=== PATIENT | female | born 1995 | race Caucasian/White ===

== ENCOUNTER 2020-05-14 07:20 | Outpatient (REF) | payer OTHER, SELFPAY ==
[2020-05-14 11:14] LABS: MANUAL DIFF FLAG NO
[2020-05-14 11:27] LABS: Basophils Percent Auto 0.5 % (0-2); Eosinophils Absolute Auto 0.2 X10*3/uL (0.0-0.4); Eosinophils Percent Auto 2.9 % (0-4); Hematocrit 40.8 % (37-47); Hemoglobin 13.2 g/dl (12.0-16.0); Imm Gran Abs Auto 0.02 X10*3/uL (0.00-0.03); Imm Gran Pct Auto 0.3 % (0.0-0.4); Lymphocytes Percent Auto 39.8 % (20-40); Mean Corpuscular HGB Conc 32.4 g/dl (31.0-35.0); Mean Corpuscular Hemoglobin 28.7 pg (27.0-33.0); Mean Corpuscular Volume 88.7 fL (80-98); Mean Platelet Volume 11.7 fL (9.4-12.3); Monocytes Absolute Auto 0.5 X10*3/uL (0.1-1.2); Neutrophils Absolute Auto 3.9 X10*3/uL (2.0-8.3); Neutrophils Percent Auto 50.5 % (45-73); Platelet Count 334 X10*3/uL (160-400); Red Cell Distribution Width 12.6 % (11.0-16.0); White Blood Count 7.6 X10*3/uL (4.8-10.8)
[2020-05-14 11:35] LABS: Glucose Urine UA NEG (NEG); Leukocyte Esterase Urine 1+ (NEG); Nitrite Urine NEG (NEG); Urine Blood NEG (NEG); Urine Ketones NEG (NEG); Urine Protein NEG (NEG-TRACE)
[2020-05-14 11:47] LABS: Alanine Aminotransferase 9 U/L (0-31); Alkaline Phosphatase 57 U/L (39-117); Anion Gap 14 (12-20); Aspartate Amino Transferase 13 U/L (5-31); Bilirubin Total 0.3 mg/dL (0.0-1.0); Blood Urea Nitrogen 10 mg/dL (9-16); Calcium 8.8 mg/dL (8.4-10.2); Carbon Dioxide 23 mmol/L (22-29); Chloride 105 mmol/L (96-108); Cholesterol 217 mg/dL; Estimated Glomerular Filt Rate > 60; Glucose Fasting 74 mg/dL (60-99); HDL Cholesterol 60 mg/dL; Iron 63 mcg/dL (30-160); LDL Cholesterol Calculated 120 mg/dl; Percent Iron Saturation 15 % (15-50); Potassium 4.4 mmol/l (3.3-5.1); Sodium 138 mmol/L (135-145); Total Iron Binding Capacity 425 mcg/dL (228-428); Total Protein 7.1 g/dL (6.5-8.0); Triglycerides 187 mg/dL; Unsaturated Iron Binding 362 ug/dL
[2020-05-14 11:51] LABS: Appearance Urine HAZY; Color Urine YELLOW
[2020-05-14 12:10] LABS: Ferritin 33 ng/mL (10-122); TSH reflex Free T4 1.21 mIU/mL (0.32-4.0)
[2020-05-14 12:31] LABS: Bacteria Urine 1+ /LPF; RBC Urine 0 /HPF (0); Squamous Epithelial Cell Urine 2+ /LPF
== END 2020-05-14 07:21 | disposition home or self-care (01) ==
LOC: HO.HMGCLDS 07:20
PROVIDERS: PCP Internal Medicine; Visit Provider Nurse Practitioner Family
DX: G25.81 Restless legs syndrome (principal); Z00.00 Encounter for general adult medical examination without abnormal findings
CPT/HCPCS: 36415; 80053; 80061; 81001; 82728; 83540; 84443; 85025

== ENCOUNTER → 2020-06-16 08:21 | Outpatient (REF) | payer OTHER, SELFPAY ==
--- NOTE | 2020-06-16 08:25 | CA_ITS ---
Transthoracic Echocardiogram Patient (Last, First, Middle): Ivanna Hogan, Gender: Female Date of : 1995 Age: 25 Procedure Date: 06/16/2020 Procedure Type: Transthoracic Echocardiogram Location: OP Height: 160.02 cm Weight: 72.58 kg BSA: 1.76 m2 Heart Rate: bpm BP: 118 / 60 mmHg Video Manager: Referring MD: Sammy Nicolas [facility] Symptoms: R01.1 - Cardiac murmur, unspecified Study Quality: Good ECG Rhythm: Sinus Conclusions: - The left ventricular systolic function is normal. The visually estimated ejection fraction is between 60-65%. - No obvious valvular pathology seen on this study. Findings Left Ventricle Normal left ventricular cavity size. There is normal left ventricular wall thickness. The left ventricular systolic function is normal. The visually estimated ejection fraction is between 60-65%. There is no evidence of regional wall motion abnormalities. Diastolic function is normal for age. Right Ventricle Normal right ventricular cavity size and systolic function. Atria The left atrium is normal in size. The right atrium is normal in size. Aortic Valve There is a normal trileaflet aortic valve. There is no aortic valve stenosis. There is no aortic valve regurgitation. Mitral Valve The mitral valve appears normal. There is trace mitral valve regurgitation. There is no mitral valve stenosis. Pulmonic Valve The pulmonic valve was not well visualized. Tricuspid Valve Normal tricuspid valve structure. There is trace tricuspid valve regurgitation. The pulmonary artery systolic pressure is normal. Great Vessels The aortic annulus, sinuses of valsalva, and asc aorta are normal in size. Venous The inferior vena cava is normal in size and collapses greater than 50% with inspiration. Pericardium/Pleural There is no evidence of pericardial effusion. Prior Study Comparison No prior study available for comparison. Recommendations, Care & Conclusions No obvious valvular pathology seen on this study. Measurements 2D Linear Measurements IVSd: 0.90 0.6-0.9/0.6-1.0 cm LVIDd: 3.74 3.9-5.3/4.2-5.9 cm LVIDd Index: 2.13 2.4-3.2/2.2-3.1 cm/m2 LVIDs: 2.17 2.0-3.6 cm LVPWd: 0.97 0.7-1.1 cm Ao Root: 2.80 2.1-3.5 cm LA Diam: 2.80 2.7-3.8/3.0-4.0 cm LAIDs Index: 1.59 1.5-2.3 cm/m2 LV Mass: 129.71 67-162/88-224 g LV Mass Index: 73.70 43-95/49-115 g/m2 LVOT Diam: 2.40 3.0+(-)1.3 cm Mitral Valve MV Pk E: 0.80 MV PK A: 0.78 MV Decel Time: 127.00 E/A: 1.00 E'Lateral: 18.30 E'Medial: 13.80 E/E' Med: 5.80 E/E' Lat: 4.40 PHT: 37.00 MVA PHT: 5.95 Decel Mccracken: 6.31 Aortic Valve AoV Pk Davin: 1.46 AoV Mn Davin: 0.92 AoV VTI: 0.28 AoV Pk Grad: 9.00 Aov Mn Grad: 4.00 HIRAL Cont.VTI: 3.19 LVOT LVOT Pk Davin: 1.04 LVOT Mn Davin: 0.66 LVOT VTI: 0.19 LVOT Pk Grad: 4.00 LVOT Mn Grad: 2.00 LVOT Diam: 2.40 LVOT Area: 4.52 Diastolic Function MV Pk E: 0.80 MV Pk A: 0.78 E/A: 1.00 E'Medial: 13.80 E/E' Med: 5.80 E' Laterial: 18.30 E/E' Lat: 4.40 Tricuspid Valve TR Pk Davin: 2.11 TR Pk Grad: 18.00 RA Press: 3.00 RVSP: 21.00 Great Vessels Aorta Ao Root-2D: 2.80 2.0-3.7 cm Ao Asc: 2.40 2.1-3.4 cm Pulmonary Valve PV Pk Davin: 1.13 Peak PV Grad: 5.00 Updated in Other Vendor System with Status of Final Eliseo Keen MD electronically signed on 06/16/2020 11:39:43 AM with status of Final
--- NOTE | 2020-06-16 09:25 | US_ITS ---
EXAMINATION: US THYROID CLINICAL INFORMATION: Nontoxic goiter, unspecified. COMPARISON: None. TECHNIQUE: Linear transducer law-scale and color Doppler examination with attention to the region of the thyroid. FINDINGS: SIZE: Measurements of the thyroid lobes and nodules are given in sagittal, anteroposterior and transverse dimensions respectively. Right Thyroid Lobe: 4.2 x 1.4 x 1.3 cm, volume 4.0 mL. Parenchyma: The gland echotexture is homogeneous. Thyroid vascularity is normal. Left Thyroid Lobe: 4.2 x 0.9 x 1.2 cm, volume 2.4 mL. Parenchyma: The gland echotexture is homogeneous. Thyroid vascularity is normal. Isthmus: 0.3 cm in maximum AP dimension. RIGHT THYROID LOBE: There are 3 nodules seen. 1. Location: Superior. Size: 0.3 x 0.3 x 0.3 cm. Nodule characteristics: Hypoechoic, smoothly marginated with no intranodular flow, likely simple cyst. 2. Location: Middle. Size: 0.5 x 0.4 x 0.3 cm. Nodule characteristics: Hypoechoic, smoothly marginated with echogenic microcalcifications and no intranodular flow, likely a colloid cyst. 3. Location: Middle. Size: 0.4 x 0.3 x 0.4 cm. Nodule characteristics: Hypoechoic, smoothly marginated with echogenic microcalcifications and no intranodular flow, likely colloid cyst.. ISTHMUS: No nodules. LEFT THYROID LOBE: There are 3 nodules seen.1. Location: Middle. Size: 0.6 x 0.4 x 0.5 cm. Nodule characteristics: Hypoechoic, smoothly marginated with intrinsic calcification and no intranodular flow, likely a colloid cyst. 2. Location: Middle. Size: 0.3 x 0.4 x 0.4 cm. Nodule characteristics: Hypoechoic, smoothly marginated with no intranodular flow, likely a colloid cyst. 3. Location: Inferior. Size: 0.4 x 0.2 x 0.3 cm. Nodule characteristics: Hypoechoic, smoothly marginated with no intranodular flow, likely a colloid cyst. NODES: No lymphadenopathy is seen in the tissue surrounding the thyroid gland. US/US thyroid IMPRESSION: Bilateral nonsuspicious subcentimeter thyroid nodules.
== END ==
LOC: HO.CARD 08:21
PROVIDERS: Visit Provider Nurse Practitioner Family
DX: R01.1 Cardiac murmur, unspecified (principal); E04.9 Nontoxic goiter, unspecified
CPT/HCPCS: 76536; 93306

== ENCOUNTER 2021-06-22 08:29 | Outpatient (REF) | payer OTHER, SELFPAY ==
--- NOTE | ~2021-06-22 | US_ITS ---
EXAMINATION: US THYROID CLINICAL INFORMATION: Nontoxic multinodular goiter. COMPARISON: Ultrasound thyroid 06/16/2020. TECHNIQUE: Linear transducer grayscale and color Doppler examination with attention to the region of the thyroid. FINDINGS: SIZE: Measurements of the thyroid lobes and nodules are given in sagittal, anteroposterior and transverse dimensions respectively. Right Thyroid Lobe: 4.9 x 1.2 x 1.5 cm, volume 4.6 mL. Previously 4.2 x 1.4 x 1.3 cm, volume 4.0 mL. Parenchyma: The gland echotexture is homogeneous. Thyroid vascularity is slightly increased. Left Thyroid Lobe: 4.8 x 1.0 x 1.3 cm, volume 3.3 mL. Previously 4.2 x 0.9 x 1.2 cm, volume 2.4 mL. Parenchyma: The gland echotexture is homogeneous. Thyroid vascularity is slightly normal. Isthmus: 0.3 cm in maximum AP dimension. Previously 0.3 cm. There are multiple subcentimeter colloid cysts bilaterally. This is similar to previous exam. No other focal thyroid nodule is seen. NODES: No lymphadenopathy is seen in the tissue surrounding the thyroid gland. US/US thyroid IMPRESSION: Slightly hypervascular thyroid gland. Multiple bilateral colloid cysts. According to TI RADS criteria, no imaging follow-up is indicated. ACR TI-RADS RECOMMENDATION REFERENCE: Ultrasound-guided fine-needle aspiration, followup ultrasound, no further follow up. * TR1 (0 point) and TR 2 (2 points): No FNA or follow up * TR3 (3 points): FNA if more than or equal to 2.5 cm in maximum dimension, followup ultrasound in 1, 3 and 5 years if 1.5 to 2.4 cm in maximum dimension. * TR4 (4-6 points): FNA if more than or equal to 1.5 cm in maximum dimension, followup ultrasound in 1, 2, 3 and 5 years if 1 to 1.4 cm in maximum dimension. * TR5 (more than or equal to 7 points): FNA if more than or equal to 1 cm in maximum dimension, followup ultrasound every year for 5 years if 0.5 to 0.9 cm in maximum dimension. * TR3, TR4 or TR5 nodules that are below the size threshold for follow up receive no follow up.
== END 2021-06-22 08:30 | disposition home or self-care (01) ==
LOC: HO.US 08:29
PROVIDERS: Visit Provider Internal Medicine
DX: E04.2 Nontoxic multinodular goiter (principal)
CPT/HCPCS: 76536

== ENCOUNTER 2022-11-11 14:19 | Outpatient (REF) | payer OTHER, SELFPAY ==
[2022-11-11 17:01] LABS: Alanine Aminotransferase 10 U/L (0-31); Albumin Level 4.6 g/dL (3.5-5.0); Alkaline Phosphatase 87 U/L (39-117); Anion Gap 11 (12-20); Aspartate Amino Transferase 16 U/L (5-31); Bilirubin Total 0.6 mg/dL (0.0-1.0); Blood Urea Nitrogen 13 mg/dL (9-16); Calcium 9.8 mg/dL (8.4-10.2); Carbon Dioxide 27 mmol/L (22-29); Chloride 106 mmol/L (96-108); Estimated Glomerular Filt Rate > 60; Glucose Random 78 mg/dL (60-115); Iron 72 mcg/dL (30-160); Percent Iron Saturation 20 % (15-50); Potassium 4.3 mmol/L (3.3-5.1); Sodium 140 mmol/L (135-145); Total Iron Binding Capacity 356 mcg/dL (228-428); Unsaturated Iron Binding 284 ug/dL
[2022-11-11 17:16] LABS: Vitamin D 25-OH Total 23.3 ng/mL (>30)
== END 2022-11-11 14:20 | disposition home or self-care (01) ==
LOC: HO.HMGCLDS 14:19
PROVIDERS: PCP Internal Medicine; Visit Provider Internal Medicine
DX: Z00.00 Encounter for general adult medical examination without abnormal findings (principal); E04.9 Nontoxic goiter, unspecified
CPT/HCPCS: 36415; 80053; 82306; 83540

== ENCOUNTER → 2023-10-19 14:09 | Outpatient (BNVA) | payer OTHER, SELFPAY | PROVIDERS: PCP Internal Medicine; Visit Provider Physician Assistant | DX: S00.33XA Contusion of nose, initial encounter (principal); W50.0XXA Accidental hit or strike by another person, initial encounter | CPT/HCPCS: 70140; 99204 ==

== ENCOUNTER → 2023-10-26 15:52 | Outpatient (BNVA) | payer OTHER, SELFPAY | PROVIDERS: PCP Internal Medicine; Visit Provider Physician Assistant | DX: S02.2XXA Fracture of nasal bones, initial encounter for closed fracture (principal); W20.8XXA Other cause of strike by thrown, projected or falling object, initial encounter | CPT/HCPCS: 99213 ==

== ENCOUNTER 2023-11-12 08:49 | Outpatient (REF) | payer OTHER, SELFPAY ==
[2023-11-12 11:04] LABS: MANUAL DIFF FLAG NO
[2023-11-12 11:14] LABS: Basophils Absolute Auto 0.1 X10*3/uL (0.0-0.2); Basophils Percent Auto 0.8 % (0-2); Eosinophils Absolute Auto 0.3 X10*3/uL (0.0-0.4); Eosinophils Percent Auto 4.6 % (0-4); Hematocrit 40.7 % (37.0-47.0); Hemoglobin 13.4 g/dl (12.0-16.0); Imm Gran Abs Auto 0.01 X10*3/uL (0.00-0.03); Imm Gran Pct Auto 0.2 % (0.0-0.4); Lymphocytes Absolute Auto 2.6 X10*3/uL (1.2-4.9); Lymphocytes Percent Auto 40.1 % (20-40); Mean Corpuscular HGB Conc 32.9 g/dl (31.0-35.0); Mean Corpuscular Hemoglobin 28.9 pg (27.0-33.0); Mean Corpuscular Volume 87.9 fL (80.0-98.0); Mean Platelet Volume 11.4 fL (9.4-12.3); Monocytes Absolute Auto 0.5 X10*3/uL (0.1-1.2); Monocytes Percent Auto 7.6 % (2-11); Neutrophils Absolute Auto 3.1 x10*3/uL (2.0-8.3); Neutrophils Percent Auto 46.7 % (45-73); Platelet Count 318 X10*3/uL (160-400); Red Blood Count 4.63 X10*6/uL (4.20-5.50); Red Cell Distribution Width 13.2 % (11.0-16.0); White Blood Count 6.6 X10*3/uL (4.8-10.8)
[2023-11-12 12:09] LABS: Alanine Aminotransferase 10 U/L (0-31); Albumin Level 4.4 g/dL (3.5-5.0); Alkaline Phosphatase 70 U/L (39-117); Anion Gap 14 (12-20); Aspartate Amino Transferase 18 U/L (5-31); Bilirubin Total 0.6 mg/dL (0.0-1.0); Blood Urea Nitrogen 10 mg/dL (9-16); Calcium 9.4 mg/dL (8.4-10.2); Carbon Dioxide 20 mmol/L (22-29); Chloride 109 mmol/L (96-108); Cholesterol 196 mg/dL (<200); Estimated Glomerular Filt Rate > 60; Glucose Fasting 82 mg/dL (60-99); HDL Cholesterol 50 mg/dL (>40); LDL Cholesterol Calculated 126 mg/dL (<100); Potassium 3.8 mmol/L (3.3-5.1); Sodium 139 mmol/L (135-145); Total Protein 7.8 g/dL (6.5-8.0); Triglycerides 103 mg/dL (<150)
[2023-11-12 12:24] LABS: TSH reflex Free T4 0.63 uIU/mL (0.32-4.0)
== END 2023-11-12 08:50 | disposition home or self-care (01) ==
LOC: HO.HMGCLDS 08:49
PROVIDERS: PCP Internal Medicine; Visit Provider Internal Medicine
DX: Z00.00 Encounter for general adult medical examination without abnormal findings (principal); Z13.6 Encounter for screening for cardiovascular disorders; E04.9 Nontoxic goiter, unspecified
CPT/HCPCS: 36415; 80053; 80061; 84443; 85025

== ENCOUNTER 2023-11-16 07:33 | Outpatient (AMB) | payer OTHER, SELFPAY ==
--- NOTE | 2023-11-16 07:40 | MHC.PC.OV ---
Vital Signs 11/16/23 07:42 Height 5 ft 3 in Weight 175 lb BMI 31.0 BP 102/80 Blood Pressure Location Lt brachial Position Sitting Pulse 79 Pulse Source Pulse Oximeter Pulse Oximetry (%) 100 Oxygen Delivery Method Room Air Intake Visit Reasons: PE Intake Note: Pt is here today for her PE Allergies No Known Allergies Allergy (Verified 11/16/23 07:41) Medication List - Last Reconciled 11/16/23 by Tanisha Ornelas MD No Known Home Meds Tobacco use date assessed: 11/16/23 Dental Screening Dental Screen Date: 11/16/23 Did you have a dental visit in the last 12 months?: Yes Did you have a dental problem in the last 6 months where you did not have access to dental care?: Yes Was dental information given to patient?: Patient has dentist HPI PE HPI Details Pt is for PE. [facility] Medical History (Updated 11/16/23 @ 08:20 by Tanisha Ornelas MD) Normal Pap smear GERD (gastroesophageal reflux disease) Mild intermittent asthma Iron deficiency anemia Surgical History History of breast biopsy History of deviated nasal septum History of surgery on arm Family History Father Diabetes mellitus Sarcoidosis Mother Endometriosis Maternal Grandfather Diabetes mellitus CVD (cardiovascular disease) Maternal Grandmother CVD (cardiovascular disease) Paternal Grandmother No problems noted. Paternal Grandfather No problems noted. Sister No problems noted. Maternal Aunt Breast cancer Social History Housing: House Alcohol intake: current Alcohol intake frequency: a few times a month Patient Tobacco Use Status: Never used Tobacco e-Cigarette/Vaping Use: Never Used Current occupational status: employed Cognitive needs: No Hearing needs: No Vision needs: No Questionnaire Thrive Questionnaire Date Thrive assessed: 11/11/22 I am a: Patient What is your living situation today?: I have a steady place to live Within the past 12 months, did the food you bought not last and you didn't have the money to get more?: Never true Within the past 12 months, did you worry whether your food would run out before you got money to buy more?: Never true Please select the resources that you would like help with: None THRIVE Score: 0 AUDIT C Alcohol Use Questionnaire (AUDIT-C) 1. How often do you have a drink containing alcohol?: 2-4 times a month 2. How many drinks containing alcohol do you have on a typical day when you are drinking?: 1 or 2 3. How often do you have six or more drinks on one occasion?: Never Total Score: 2 KATIE-7 AMB Questionnaire KATIE-7 Date KATIE - 7 assessed: 11/11/22 Feeling nervous, anxious, or on edge: 1 = Several days Not being able to stop or control worryin = Several days Worrying too much about different things: 1 = Several days Trouble relaxin = Not at all Being so restless that it is hard to sit still: 0 = Not at all Becoming easily annoyed or irritable: 0 = Not at all Feeling afraid as if something awful might happen: 0 = Not at all Total KATIE-7 score (0-4 normal; 5-9 mild; 10-14 moderate; 15-21 severe): 3 Source: Developed by Drs. Adalberto Bush, Kell Smith, Bassam Argueta and colleagues, with an educational ra from [employer]. Review of Systems Const All systems reviewed & are unremarkable except as noted in HPI and below Reports no additional complaints Eyes Reports no additional complaints ENT Reports no additional complaints Card Reports no additional complaints Resp Reports no additional complaints GI Reports no additional complaints Reports no additional complaints Physical exam (Primary Care) Vital Signs: Last Vital Signs Pulse 79 11/16/23 07:42 BP 102/80 11/16/23 07:42 Pulse Ox 100 11/16/23 07:42 Oxygen Delivery Method Room Air 11/16/23 07:42 BMI result Body Mass Index 31.0 Tobacco/Smoking Status: Tobacco use Status Tobacco use date assessed 11/16/23 11/16/23 07:44 Patient Tobacco Use Status Never used Tobacco 11/16/23 07:44 e-Cigarette/Vaping Use Never Used 11/16/23 07:44 Thrive Assessment: Date of Thrive Assessment Date Thrive assessed 11/11/22 11/16/23 07:44 Const General: no acute distress HENMT Head: Yes normal to inspection Ears: hearing grossly normal bilaterally Face and sinus: Yes normal facial exam Throat: Yes posterior oropharynx normal Eyes General: appearance normal, both eyes and all related structures Neck Neck: Yes supple Resp Effort & Inspection: normal respiratory effort Auscultation: clear to auscultation bilaterally Cardio Rhythm: regular rhythm Heart sounds: S1 normal heart sound present and S2 normal heart sound present GI Inspection: Yes normal to inspection Palpation (GI): Soft to palpation Percussion: Yes normal to percussion Auscultation: normal bowel sounds Assessment and Plan Assessment & Plan (1) Dysplastic nevus: Comment: on upper chest Code(s): D23.9 - Other benign neoplasm of skin, unspecified Plan: refer to dermatology (2) Physical exam: Code(s): Z00.00 - Encounter for general adult medical examination without abnormal findings Plan: Well-balanced diet regular exercise discussed with the patient. She has up-to-date with the Pap smear by rental manager Orders: Orders Complete Blood Count Auto Diff 1 Year Z00.00 - Encounter for general adult medical examination without abnormal findings Comprehensive [place]. Panel Fast 1 Year Z00.00 - Encounter for general adult medical examination without abnormal findings Lipid Panel 1 Year Z00.00 - Encounter for general adult medical examination without abnormal findings Referrals Dermatology Referral D23.9 - Other benign neoplasm of skin, unspecified Coding Level of Care Code Est Pt Prev Care 18-39y(74942) Diagnoses Dysplastic nevus D23.9 Physical exam Z00.00
[2023-11-16 07:42] VITALS: BP 102/80; PULSE 79; O2SAT 100; BMI 31.0
== END 2023-11-16 08:17 | disposition home or self-care (01) ==
PROVIDERS: Visit Provider Internal Medicine
DX: D23.9 Other benign neoplasm of skin, unspecified (principal); Z00.00 Encounter for general adult medical examination without abnormal findings
CPT/HCPCS: 99395

== ENCOUNTER 2025-03-15 07:34 | Outpatient (REF) | payer BC, SELFPAY ==
[2025-03-18 18:23] LABS: Immunoglobulin A 350 mg/dL (47-310)
== END 2025-03-15 07:35 | disposition home or self-care (01) ==
LOC: HO.HMGCLDS 07:34
PROVIDERS: PCP Internal Medicine; Visit Provider Internal Medicine
DX: K90.0 Celiac disease (principal)
CPT/HCPCS: 36415; 82784; 86364

== ENCOUNTER 2025-04-04 08:42 | Outpatient (REF) | payer BC, SELFPAY | END 2025-04-04 08:43 | disposition home or self-care (01) | LOC: HO.HMGCLDS 08:42 | PROVIDERS: PCP Internal Medicine; Visit Provider Internal Medicine | DX: R76.89 Other specified abnormal immunological findings in serum (principal) | CPT/HCPCS: 36415; 82784; 86334 ==

== ENCOUNTER 2025-04-11 12:31 | Outpatient (AMB) | payer BC, SELFPAY ==
--- NOTE | 2025-04-11 12:35 | A.OFFPC_ITS ---
Vital Signs 04/11/25 12:38 Height 5 ft 3 in Weight 154 lb BMI 27.3 BP 108/76 Blood Pressure Location Lt brachial Position Sitting Pulse 74 Pulse Source Pulse Oximeter Temp 98.3 F Temp Source Oral Pulse Oximetry (%) 99 Oxygen Delivery Method Room Air Intake Visit Reasons: Annual PE Intake Note: Pt is here today for PE. Allergies No Known Allergies Allergy (Verified 04/11/25 12:39) Medication List - Last Reconciled 04/11/25 by Tanisha Ornelas MD docosahexaenoic acid ( DHA) PO sertraline 50 mg PO DAILY Tobacco use date assessed: 04/11/25 Dental Screening Dental Screen Date: 04/11/25 Did you have a dental visit in the last 12 months?: Yes Did you have a dental problem in the last 6 months where you did not have access to dental care?: No Was dental information given to patient?: Patient has dentist HPI Annual PE HPI Details Pt presents for PE. She had her 2nd child 6 months ago. Had 3-year- old daughter was diagnosed with celiac disease. [facility] Medical History (Updated 04/11/25 @ 13:08 by Tanisha Ornelas MD) Gestational diabetes Dysplastic nevus Normal Pap smear GERD (gastroesophageal reflux disease) Mild intermittent asthma Iron deficiency anemia Surgical History History of breast biopsy History of deviated nasal septum History of surgery on arm Family History Father Diabetes mellitus Sarcoidosis Mother Endometriosis Maternal Grandfather Diabetes mellitus CVD (cardiovascular disease) Maternal Grandmother CVD (cardiovascular disease) Paternal Grandmother No problems noted. Paternal Grandfather No problems noted. Sister No problems noted. Maternal Aunt Breast cancer Social History Housing: House Alcohol intake: current Alcohol intake frequency: a few times a month Patient Tobacco Use Status: Never used Tobacco e-Cigarette/Vaping Use: Never Used service: No Current occupational status: employed Cognitive needs: No Hearing needs: No Vision needs: No Questionnaire PHQ-9 Over the last 2 weeks, how often have you been bothered by any of the following problems? 1. Little interest or pleasure in doing things: not at all 2. Feeling down, depressed, or hopeless: not at all 3. Trouble falling or staying asleep, or sleeping too much: not at all 4. Feeling tired or having little energy: several days 5. Poor appetite or overeating: not at all 6. Feeling bad about yourself - or that you are a failure or have let yourself or your family down: not at all 7. Trouble concentrating on things, such as reading the newspaper or watching television: not at all 8. Moving or speaking so slowly that other people could have noticed. Or the opposite - being so fidgety or restless that you have been moving around a lot more than usual: not at all 9. Thoughts that you would be better off or of hurting yourself in some way: not at all Total score: 1 Depression Screening Interpretation: Negative Depression Screening Done: Yes 30449 - PHQ-9 Billing: Yes Source: Developed by Drs. Adalberto Bush, Kell Smith, Bassam Argueta and colleagues, with an educational ra from [employer]. Thrive Questionnaire Date Thrive assessed: 04/11/25 I am a: Patient What is your living situation today?: I have a steady place to live Within the past 12 months, did the food you bought not last and you didn't have the money to get more?: Never true Within the past 12 months, did you worry whether your food would run out before you got money to buy more?: Never true Do you have trouble paying for medicines?: No Do you have trouble getting transportation to medical appointments?: No Do you have trouble paying your heating and electricity bill?: No Do you have trouble taking care of your child, family member or friend?: No Do you have trouble with day-to-day activities such as bathing, preparing meals, shopping, managing finances, etc.?: No Are you currently unemployed and looking for a job?: No Are you interested in more education?: No Please select the resources that you would like help with: None Currently or been in a relationship where the following occur: No concerns rep orted THRIVE Score: 0 AUDIT C Alcohol Use Questionnaire (AUDIT-C) 1. How often do you have a drink containing alcohol?: Monthly or less 2. How many drinks containing alcohol do you have on a typical day when you are drinking?: 1 or 2 3. How often do you have six or more drinks on one occasion?: Never Total Score: 1 KATIE-7 AMB Questionnaire KATIE-7 Date KATIE - 7 assessed: 04/11/25 Feeling nervous, anxious, or on edge: 0 = Not at all Not being able to stop or control worryin = Not at all Worrying too much about different things: 1 = Several days Trouble relaxin = Not at all Being so restless that it is hard to sit still: 0 = Not at all Becoming easily annoyed or irritable: 0 = Not at all Feeling afraid as if something awful might happen: 1 = Several days Total KATIE-7 score (0-4 normal; 5-9 mild; 10-14 moderate; 15-21 severe): 2 Source: Developed by Drs. Adalberto Bush, Kell Smith, Bassam Argueta and colleagues, with an educational ra from [employer]. KATIE-7 Assessment Billing KATIE-7 Assessment Tool: KATIE-7 Assessment 34803 Review of Systems Const All systems reviewed & are unremarkable except as noted in HPI and below Eyes Reports no additional complaints ENT Reports no additional complaints Card Reports no additional complaints Resp Reports no additional complaints GI Reports no additional complaints Reports no additional complaints Physical exam (Primary Care) Vital Signs: Last Vital Signs Temp 98.3 F 04/11/25 12:38 Pulse 74 04/11/25 12:38 BP 108/76 04/11/25 12:38 Pulse Ox 99 04/11/25 12:38 Oxygen Delivery Method Room Air 04/11/25 12:38 BMI result Body Mass Index 27.3 Tobacco/Smoking Status: Tobacco use Status Tobacco use date assessed 04/11/25 04/11/25 12:43 Patient Tobacco Use Status Never used Tobacco 04/11/25 12:35 e-Cigarette/Vaping Use Never Used 04/11/25 12:35 PHQ-9: PHQ-9 Score PHQ-9: Total score 1 04/11/25 12:43 Depression Screening Interpretation: Negative Thrive Assessment: Date of Thrive Assessment Date Thrive assessed 04/11/25 04/11/25 12:43 Currently or been in a relationship where the following occur: No concerns reported HENAK Head: Yes normal to inspection Ears: hearing grossly normal bilaterally General nose exam: Normal external nose present Mouth: Normal oral and palatal mucosa present Neck Neck: Yes no lymphadenopathy and Yes supple Resp Effort & Inspection: normal respiratory effort Auscultation: clear to auscultation bilaterally Cardio Rhythm: regular rhythm Heart sounds: S1 normal heart sound present and S2 normal heart sound present GI Inspection: Yes normal to inspection Palpation (GI): Soft to palpation Percussion: Yes normal to percussion Auscultation: normal bowel sounds Coding Level of Care Code Est Pt Prev Care 18-39y(60505) Diagnoses Dysplastic nevus D23.9 Gestational diabetes O24.419 Anemia D64.9 Physical exam Z00.00 Additional Codes KATIE-7 Assessment Billing - KATIE-7 Assessment Tool: KATIE-7 Assessment [id number] ([id number]) PHQ-9 - 56784 - PHQ-9 Billing: Yes ([id number]) Assessment & Plan Assessment & Plan (1) Dysplastic nevus: Comment: on upper chest skin tag Code(s): D23.9 - Other benign neoplasm of skin, unspecified Category: Medical Plan: Follow-up with dermatology (2) Gestational diabetes: Comment: During 2nd , diet controlled Code(s): O24.419 - Gestational diabetes mellitus in , unspecified control Category: Medical Plan: Continue ADA diet check A1c (3) Anemia: Code(s): D64.9 - Anemia, unspecified Category: Medical Plan: Check CBC and iron count (4) Physical exam: Code(s): Z00.00 - Encounter for general adult medical examination without abnormal findings Category: Medical Plan: Well-balanced diet regular physical activity discussed with the patient. Orders: Orders IRON PROFILE Today D64.9 - Anemia, unspecified, L65.9 - Nonscarring hair loss, unspecified Hemoglobin A1c Today D64.9 - Anemia, unspecified, L65.9 - Nonscarring hair lo ss, unspecified Vitamin D 25-OH Total Today D64.9 - Anemia, unspecified, L65.9 - Nonscarring hair loss, unspecified TSH reflex Free T4 Today E04.9 - Nontoxic goiter, unspecified Complete Blood Count Auto Diff Today D64.9 - Anemia, unspecified, L65.9 - Nonscarring hair loss, unspecified Comprehensive Met. Panel Today D64.9 - Anemia, unspecified, L65.9 - Nonscarring hair loss, unspecified Vitamin B12 and Folate Today D64.9 - Anemia, unspecified, L65.9 - Nonscarring hair loss, unspecified Referrals Dermatology Referral D23.9 - Other benign neoplasm of skin, unspecified
[2025-04-11 12:38] VITALS: BP 108/76; PULSE 74; TEMP 36.8; O2SAT 99; BMI 27.3
== END 2025-04-11 13:06 | disposition home or self-care (01) ==
LOC: HO.HMCC 12:32
PROVIDERS: PCP Internal Medicine; Visit Provider Internal Medicine
DX: Z00.00 Encounter for general adult medical examination without abnormal findings (principal); D23.9 Other benign neoplasm of skin, unspecified; O24.419 Gestational diabetes mellitus in pregnancy, unspecified control; D64.9 Anemia, unspecified

== ENCOUNTER 2025-04-11 12:31 | Outpatient (REF) | payer BC, SELFPAY ==
[2025-04-11 16:09] LABS: MANUAL DIFF FLAG NO
[2025-04-11 16:16] LABS: Hematocrit 39.5 % (37.0-47.0); Hemoglobin 12.9 g/dl (12.0-16.0); Imm Gran Abs Auto 0.01 X10*3/uL (0.00-0.03); Imm Gran Pct Auto 0.1 % (0.0-0.4); Lymphocytes Absolute Auto 2.8 X10*3/uL (1.2-4.9); Mean Corpuscular HGB Conc 32.7 g/dl (31.0-35.0); Mean Corpuscular Hemoglobin 29.5 pg (27.0-33.0); Mean Corpuscular Volume 90.2 fL (80.0-98.0); NRBC Abs Auto 0.000 X10*3/uL (0.0-0.012); NRBC Pct Auto 0.0 /100WBC (0.0-0.2); Platelet Count 292 X10*3/uL (160-400); Red Blood Count 4.38 X10*6/uL (4.20-5.50); White Blood Count 7.8 X10*3/uL (4.8-10.8)
[2025-04-11 16:50] LABS: Alanine Aminotransferase 14 U/L (0-31); Albumin Level 4.6 g/dL (3.5-5.0); Alkaline Phosphatase 82 U/L (39-117); Anion Gap 13 (12-20); Aspartate Amino Transferase 18 U/L (5-31); Blood Urea Nitrogen 14 mg/dL (9-16); Calcium 9.1 mg/dL (8.4-10.2); Carbon Dioxide 26 mmol/L (22-29); Chloride 106 mmol/L (96-108); Estimated Glomerular Filt Rate > 60; Iron 69 mcg/dL (30-160); Percent Iron Saturation 24 % (15-50); Potassium 3.9 mmol/L (3.3-5.1); Sodium 141 mmol/L (135-145); Total Iron Binding Capacity 282 mcg/dL (228-428); Total Protein 7.8 g/dL (6.5-8.0); Unsaturated Iron Binding 213 ug/dL
[2025-04-11 17:20] LABS: Folate 17.3 ng/mL (> or = 4.0); Vitamin B12 560 pg/mL (200-900)
== END 2025-04-11 12:32 | disposition home or self-care (01) ==
LOC: HO.HMGCLDS 12:31
PROVIDERS: PCP Internal Medicine; Visit Provider Internal Medicine
DX: Z00.00 Encounter for general adult medical examination without abnormal findings (principal); L65.9 Nonscarring hair loss, unspecified; D64.9 Anemia, unspecified; E04.9 Nontoxic goiter, unspecified; D23.9 Other benign neoplasm of skin, unspecified; Z86.32 Personal history of gestational diabetes
CPT/HCPCS: 36415; 80053; 82306; 82607; 82746; 83036; 83540; 84443; 85025; 96127